=== PATIENT | female | born 1995 | race Caucasian/White ===

== ENCOUNTER 2022-11-12 05:02 | Emergency (ER) | payer OTHER ==
[~2022-11-12] VITALS: Ht 162.6 cm; Wt 90.7 kg
--- NOTE | 2022-11-12 05:44 | NUR ---
EKG DONE AT BEDSIDE
[2022-11-12] MEDS ORDERED: KETOROLAC TROMETHAMINE 15 MG/ML VIAL ONE (06:28)
[2022-11-12] MEDS ORDERED: KETOROLAC TROMETHAMINE INJ 30 MG/ML VIAL IM ONE (06:30)
[2022-11-12] MEDS ORDERED: IBUP-1955 PO (09:09)
--- NOTE | 2022-11-12 09:21 | NUR ---
Patient discharged to home in stable condition. Written and verbal after care instructions given. Patient verbalizes understanding of instruction.
[2022-11-12 09:22] VITALS: BP 126/75
== END 2022-11-12 09:22 | disposition home or self-care (01) ==
LOC: ER 05:08
DX: M54.6 Pain in thoracic spine (principal); R07.89 Other chest pain
CPT/HCPCS: 99283; 71045; 96372; 93005; J1885